=== PATIENT | male | born 1950 | race Caucasian/White ===

== ENCOUNTER 2021-03-25 13:45 | Outpatient (CLI) | payer MEDICARE, OTHER | END 2021-03-25 13:46 | disposition critical access hospital (66) | LOC: EMS 13:45 | DX: R55 Syncope and collapse (principal) | CPT/HCPCS: A0425; A0427 ==

== ENCOUNTER 2021-03-25 14:09 | Observation (INO) | payer MEDICARE, OTHER ==
[2021-03-25] MEDS ORDERED: SODIUM CHLORIDE 0.9% 1,000 ML IV STA ×2 (14:15→15:02)
[2021-03-25 14:25] LABS: BASOPHILS % (AUTO) 0.4 %; EOSINOPHILS # (AUTO) 0.1 10^3/uL (0.0-0.7); EOSINOPHILS % (AUTO) 1.9 %; HGB - HEMOGLOBIN 12.6 g/dL (14.0-18.0); LYMPHOCYTES % (AUTO) 18.8 %; MEAN CORPUSCULAR HEMOGLOBIN 31.1 pg (27.0-31.0); MEAN CORPUSCULAR HGB CONC 34.1 g/dL (32.0-36.0); MEAN CORPUSCULAR VOLUME 91.4 fL (80.0-94.0); MONOCYTES # (AUTO) 0.5 10^3/uL (0.0-1.0); NEUTROPHILS # (AUTO) 3.6 10^3/uL (1.5-6.6); NEUTROPHILS % (AUTO) 68.3 %; PLT - PLATELET COUNT 211 10^3/uL (130-450); RED BLOOD COUNT 4.05 10^6/uL (4.70-6.10); RED CELL DISTRIBUTION WIDTH 12.3 % (12.0-15.0); WHITE BLOOD COUNT 5.3 x10^3/uL (4.8-10.8)
--- NOTE | 2021-03-25 14:46 | CT Report ---
PROCEDURE: CERVICAL SPINE WO INDICATIONS: GLF TECHNIQUE: Noncontrast 3 mm thick sections acquired from the skull base to the T4 level. Sagittal and coronal r eformats were then constructed. For radiation dose reduction, the following was used: automated exp osure control, adjustment of mA and/or kV according to patient size. COMPARISON: None. FINDINGS: Image quality: Excellent. Bones: No fractures or dislocations. Visualized superior ribs are intact. Degenerative endplate ch anges and bilateral facet hypertrophic changes are seen throughout cervical spine. Dorsal disc osteop hyte complex formation at C3-4, C5-6 and C6-7 levels are seen causing mild central canal stenosis, no significant neural foraminal narrowing. Soft tissues: Prevertebral soft tissues are normal in thickness. No paravertebral hematomas. No ap ical pneumothoraces. IMPRESSION: 1. No acute cervical spine fracture or dislocation. 2. Degenerative disc disease throughout cervical spine as above. Reviewed by: Benji Benson MD on 03/25/2021 2:44 PM PDT Approved by: Benji Benson MD on 03/25/2021 2:44 PM PDT Station ID: [id number]
--- NOTE | 2021-03-25 14:49 | ED Physician Documentation ---
History of Present Illness - Stated complaint Stated Complaint: GLF - Chief complaint Chief Complaint: Neuro - Additonal information Additional information: 70-year-old male was brought to the emergency department for evaluation of a loss of consciousness. He had been working outside on his home when he was talking to his . She turned around and heard a thud and found that he had passed out. He struck his head on plywood. There was loss of consciousness for perhaps up to 2 to 3 minutes. Patient was confused on scene and on arrival to the emergency department does not know the date or current president. He believes that Rosa is president and that he is in [place]. He does not however have other focal deficits. After 20 to 30 minutes in the ER the patient is able to report to me that he remembers standing at his building site and feeling lightheaded and thought to himself "I am going to pass out." This gentleman did recently undergo a left nephrectomy for renal carcinoma. This was completed at [facility]. Review of Systems Constitutional: denies: Fever, Chills Eyes: reports: Reviewed and negative Ears: reports: Reviewed and negative Nose: reports: Reviewed and negative Throat: reports: Reviewed and negative Cardiac: reports: Reviewed and negative Respiratory: reports: Reviewed and negative GI: denies: Abdominal Pain, Nausea, Vomiting : denies: Dysuria, Frequency, Hesitancy Skin: denies: Rash, Lesions Musculoskeletal: denies: Neck pain, Back pain Neurologic: reports: Syncope, Altered mental status PD PAST MEDICAL HISTORY - Present Medications Home Medications: Ambulatory Orders Medication Instructions Recorded Confirmed Amlodipine Besylate [Norvasc] 10 mg PO DAILY 03/25/21 03/25/21 Aspirin EC [Ecotrin] 81 mg PO DAILY 03/25/21 03/25/21 Enalapril Maleate [Vasotec] 35 mg PO DAILY 03/25/21 03/25/21 atenoloL [Tenormin] 25 mg ORAL DAILY 03/25/21 03/25/21 - Allergies Allergies/Adverse Reactions: Allergies Allergy/AdvReac Type Severity Reaction Status Date / Time lisinopril Allergy Unknown Verified 03/25/21 14:14 Penicillins Allergy Unknown Verified 03/25/21 14:14 PD ED PE EXPANDED - General General: No acute distress - Neck Neck: Supple w/out meningeal sx. No: Adenopathy - Cardiac Cardiac: Regular Rate, Radial strong equal, Pedal strong equal, Cap refill < 2 sec. No: Murmur Present - Respiratory Respiratory: Clear to ausultation david. No: Distress, Labored - Abdomen Abdomen: Normal Bowel sounds, Surgical scars (Surgical scar left lower quadrant at the site of the recent nephrectomy). No: Tender to palpation - Derm Derm: Normal color, Warm and dry. No: Rash - Extremities Extremities: Normal. No: Deformity, Tenderness - Neuro Neuro: Confused, CNII-XII intact, PERRL, Normal gait, Normal finger nose, Normal speech. No: Dyscongugate gaze - GCS Eye Opening: Spontaneous Motor: Obeys Commands Verbal: Oriented Total: 15 Results - Vitals Vitals: Vital Signs - 24 hr 03/25/21 03/25/21 03/25/21 14:14 14:39 14:54 Temperature 36.8 C Heart Rate 51 L 50 L 49 L Heart Rate [ Sitting] Heart Rate [ Standing] Heart Rate [ Supine] Respiratory 18 20 14 Rate Blood Pressure 133/81 H 137/70 H 137/70 H Blood Pressure [Sitting] Blood Pressure [Standing] Blood Pressure [Supine] O2 Saturation 97 97 97 03/25/21 03/25/21 03/25/21 16:18 16:49 18:00 Temperature Heart Rate 52 L 52 L 62 Heart Rate [ Sitting] Heart Rate [ Standing] Heart Rate [ Supine] Respiratory 18 18 16 Rate Blood Pressure 151/70 H 149/71 H 143/80 H Blood Pressure [Sitting] Blood Pressure [Standing] Blood Pressure [Supine] O2 Saturation 99 97 95 03/25/21 03/25/21 18:06 18:21 Temperature 36.4 C L Heart Rate Heart Rate [ 53 L Sitting] Heart Rate [ 56 L Standing] Heart Rate [ 52 L Supine] Respiratory Rate Blood Pressure Blood Pressure 156/79 H [Sitting] Blood Pressure 163/80 H [Standing] Blood Pressure 154/81 H [Supine] O2 Saturation Oxygen O2 Source Room air - EKG (time done) 1455 Rate: Rate (enter#) (52) Rhythm: NSR [place]: Normal Intervals: Prolonged NM. No: Prolonged QT Ischemia: Normal ST segments Compare to prior EKG: Old EKG unavailable Computer interpretation: Agree with computer - Labs Labs: Laboratory Tests 03/25/21 03/25/21 03/25/21 14:19 14:19 14:19 WBC 5.3 RBC 4.05 L Hgb 12.6 L Hct 37.0 L MCV 91.4 MCH 31.1 H MCHC 34.1 RDW 12.3 Plt Count 211 MPV 9.0 Neut # (Auto) 3.6 Lymph # (Auto) 1.0 L [place] # (Auto) 0.5 Eos # (Auto) 0.1 Baso # (Auto) 0.0 Absolute Nucleated RBC 0.00 Nucleated RBC % 0.0 Sodium 141 Potassium 3.9 Chloride 106 Carbon Dioxide 29 Anion Gap 6.0 BUN 29 H Creatinine 1.6 H Estimated GFR (MDRD) 43 L Glucose 93 Calcium 8.7 Total Bilirubin 0.7 AST 18 ALT 21 Alkaline Phosphatase 63 Troponin I High Sens 4.9 Total Protein 6.9 Albumin 3.8 Globulin 3.1 Albumin/Globulin Ratio 1.2 Lipase 61 H Urine Color Urine Clarity Urine pH Ur Specific [place] Urine Protein Urine Glucose (UA) Urine Ketones Urine Occult Blood Urine Nitrite Urine Bilirubin Urine Urobilinogen Ur Leukocyte Esterase Ur Microscopic Review Urine Culture Comments 03/25/21 15:13 WBC RBC Hgb Hct MCV MCH MCHC RDW Plt Count MPV Neut # (Auto) Lymph # (Auto) [place] # (Auto) Eos # (Auto) Baso # (Auto) Absolute Nucleated RBC Nucleated RBC % Sodium Potassium Chloride Carbon Dioxide Anion Gap BUN Creatinine Estimated GFR (MDRD) Glucose Calcium Total Bilirubin AST ALT Alkaline Phosphatase Troponin I High Sens Total Protein Albumin Globulin Albumin/Globulin Ratio Lipase Urine Color YELLOW Urine Clarity CLEAR Urine pH 8.0 H Ur Specific [place] 1.015 Urine Protein NEGATIVE Urine Glucose (UA) NEGATIVE Urine Ketones NEGATIVE Urine Occult Blood NEGATIVE Urine Nitrite NEGATIVE Urine Bilirubin NEGATIVE Urine Urobilinogen 0.2 (NORMAL) Ur Leukocyte Esterase NEGATIVE Ur Microscopic Review NOT INDICATED Urine Culture Comments NOT INDICATED - Rads (name of study) CT head Radiology: Final report received (No CT evidence of acute intracranial pathology. No acute skull fracture. Asymmetrically prominent right lateral ventricle which could represent ex vacuo dilation of the ventricles secondary to adjacent right basal ganglia infarction with encephalomalacia. Mild to moderate periventricular and deep) CT cervical Radiology: Final report received (No acute cervical spine fracture or dislocation. Degenerative disc disease throughout the cervical spine) Pulmonary angio Radiology: Final report received (No evidence of pulmonary embolism, aortic dissection or aneurysm. Small left pleural effusion associated with compressive atelectasis. Mild cardiomegaly without vascular congestion. Partially imaged left nephrectomy surgical clips and small postoperative seroma.) PD MEDICAL DECISION MAKING - ED course Complexity details: reviewed results, re-evaluated patient, d/w patient ED course: 70-year-old male presents the emergency department for evaluation of syncope at his home building site. He did have a lapse in consciousness of about 2 to 3 minutes. His history includes a recent nephrectomy on March 07 at [facility]. His also reports that he has had previous strokes. On presentation the patient was somewhat confused to time and place but over the course of his ER stay he has become fully bright and aware. CT of the head did not show any acute findings though there is some ventriculomegaly and encephalo malacia consistent with previous infarct. I discussed these findings with the and she was aware of them. CT of the neck did not reveal any obvious findings. His EKG was nonischemic and screening labs did not reveal any worrisome findings. Given the sudden events and recent nephrectomy I did do a CT pulmonary angio to rule out a pulmonary embolus which was negative. He has noted to have chronic kidney disease and he did receive 2 L of crystalloid here in the ER. Screening orthostatics were unrevealing. Given the recent syncope with an unclear reason he will be admitted to observation for an echocardiogram in the a.m. Plan was discussed with Dr. Costello to who graciously agrees to admit the patient. Patient and his are aware and agreeable to plan Departure - Departure Disposition: ED Place in Observation Clinical Impression: History of nephrectomy, left Syncope Qualifiers: Syncope type: unspecified Qualified Code(s): R55 - Syncope and collapse Chronic renal insufficiency, stage III (moderate) Qualifiers: Chronic kidney disease stage 3 subtype: unspecified whether 3a or 3b Qualified Code(s): N18.30 - Chronic kidney disease, stage 3 unspecified
--- NOTE | 2021-03-25 14:49 | CT Report ---
PROCEDURE: HEAD WO INDICATIONS: AMS after fall TECHNIQUE: Noncontrast 4.5 mm thick angled axial sections acquired from the foramen magnum to the vertex. For r adiation dose reduction, the following was used: automated exposure control, adjustment of mA and/or kV according to patient size. COMPARISON: None FINDINGS: Image quality: Excellent. CSF spaces: Basal cisterns are patent. No extra-axial fluid collections. Right lateral ventricle is asymmetrically enlarged compared to left side. Brain: No intracranial bleeds or masses. Likely old infarction involving right basal ganglia is see n with encephalomalacia. There is cerebral volume loss for age, with resultant ventricular and sulcal prominence. There are periventricular and deep white matter chronic small vessel ischemic changes. There is intracranial internal carotid artery atherosclerosis. Skull and face: Calvarium and visualized facial bones appear intact, without suspicious lesions. Sinuses: Visualized sinuses and mastoids are clear. IMPRESSION: 1. No CT evidence of acute intracranial pathology. No acute skull fracture. 2. Asymmetrically prominent right lateral ventricle which could represent ex vacuo dilatation of vent ricles secondary to adjacent right basal ganglia infarction with encephalomalacia. Clinical correlati on and comparison with prior study can be helpful if available. 3. Mild to moderate periventricular and deep white matter chronic small vessel ischemic changes. Reviewed by: Benji Benson MD on 03/25/2021 2:48 PM PDT Approved by: Benji Benson MD on 03/25/2021 2:48 PM PDT Station ID: [id number]
[2021-03-25 14:50] LABS: ALBUMIN 3.8 g/dL (3.2-5.5); ALBUMIN/GLOBULIN RATIO 1.2 (1.0-2.2); BILIRUBIN,TOTAL 0.7 mg/dL (0.2-1.0); CALCIUM 8.7 mg/dL (8.5-10.3); CREATININE 1.6 mg/dL (0.6-1.2); POTASSIUM 3.9 mmol/L (3.5-5.0); TOTAL PROTEIN 6.9 g/dL (6.7-8.2)
[2021-03-25 15:28] LABS: BILIRUBIN,URINE NEGATIVE (NEGATIVE); GLUCOSE, URINE (UA) NEGATIVE (NEGATIVE); KETONES,URINE (UA) NEGATIVE (NEGATIVE); LEUKOCYTE ESTERASE, URINE NEGATIVE (NEGATIVE); NITRITE,URINE NEGATIVE (NEGATIVE); OCCULT BLOOD,URINE NEGATIVE (NEGATIVE); PROTEIN,URINE NEGATIVE (NEGATIVE); UROBILINOGEN,URINE 0.2 (NORMAL) E.U./dL (NORMAL)
[2021-03-25 15:29] LABS: CLARITY,URINE CLEAR (CLEAR)
[2021-03-25] MEDS ORDERED: IOVERSOL 320 100 ML VIAL IVP ONE ×2 (15:47→16:23)
--- NOTE | 2021-03-25 16:37 | CT Report ---
PROCEDURE: ANGIO CHEST W/WO INDICATIONS: syncope; recent nephrectomy; r/o PE CONTRAST: IV CONTRAST: Optiray 320 ml: 60 PO CONTRAST: *NO PO CONTRAST TECHNIQUE: After the administration of intravenous contrast, 2 mm thick sections acquired from the pulmonary api helga to the posterior costophrenic angles. 3-dimensional maximum intensity projection (MIP) coronal a nd sagittal reformats were then acquired through the thorax. For radiation dose reduction, the follow ing was used: automated exposure control, adjustment of mA and/or kV according to patient size. COMPARISON: None FINDINGS: Image quality: Excellent. Pulmonary arteries: Pulmonary arteries are normal in size, and demonstrate no intraluminal filling d efects to suggest central pulmonary embolism. Lungs and pleura: There is a small left pleural effusion with associated compressive atelectasis pres ent. Remainder the lungs and pleural spaces are clear. Mediastinum: Heart size is enlarged. without pericardial effusion. No mediastinal or hilar adenopath y. Thoracic aorta is normal in caliber and enhancement. Esophagus is normal in caliber, without hia dhruv hernia. Bones and chest wall: No suspicious bony lesions. Ribs and thoracic spine appear intact throughout. No axillary or supraclavicular adenopathy. The thyroid is normal in size and there are no incident al findings. Abdomen: Left nephrectomy with postoperative changes and small seroma in the renal bed. IMPRESSION: 1. No evidence of pulmonary embolism, aortic dissection or aneurysm. 2. Small left pleural effusion associated compressive atelectasis. 3. Mild cardiomegaly without vascular congestion. 4. Partially imaged left nephrectomy surgical clips and small postoperative seroma. Reviewed by: Chago Lama MD on 03/25/2021 3:35 PM AKDT Approved by: Chago Lama MD on 03/25/2021 3:35 PM AKDT Station ID: [id number]
[2021-03-25] MEDS ORDERED: SODIUM CHLORIDE FLUSH 0.9% 10 ML SYRINGE IVP PRN (18:36)
[2021-03-25] MEDS ORDERED: ONDANSETRON 4 MG/2 ML VIAL IVP PRN (18:36)
[2021-03-25] MEDS ORDERED: ACETAMINOPHEN 325 MG TABLET PO PRN (18:36)
[2021-03-25] MEDS: SODIUM CHLORIDE 0.9% 1,000 ML IV SCH (19:40)
[2021-03-25 19:57] LABS: B. PARAPERTUSSIS- RESP PCR PAN NOT DETECTED; B. PERTUSSIS- RESP PCR PANEL NOT DETECTED; C. PNEUMONIAE- RESP PCR PANEL NOT DETECTED; CORONAVIRUS 229E-RESP PCR NOT DETECTED; CORONAVIRUS HKU1-RESP PCR NOT DETECTED; CORONAVIRUS NL63-RESP PCR NOT DETECTED; CORONAVIRUS OC43-RESP PCR NOT DETECTED; HUMAN METAPNEUMOVIRUS NOT DETECTED; INFLUENZA A- RESP PCR PANEL NOT DETECTED; INFLUENZA B - RESP PCR PANEL NOT DETECTED; M. PNEUMONIAE- RESP PCR PANEL NOT DETECTED; PARAINFLUENZA VIRUS 1 NOT DETECTED; PARAINFLUENZA VIRUS 2 NOT DETECTED; PARAINFLUENZA VIRUS 3 NOT DETECTED; PARAINFLUENZA VIRUS 4 NOT DETECTED; RHINOVIRUS/ENTEROVIRUS NOT DETECTED; RSV- RESP PCR PANEL NOT DETECTED; SARS-CoV-2 -RESP PCR PANEL NOT DETECTED
--- NOTE | 2021-03-25 20:26 | HISTORY & PHYSICAL EXAMINATION ---
Chief Complaint - Chief Complaint Chief Complaint: Fainted, fell at home History of Present Illness - Admitted From Admitted From:: ED - History Obtained From History obtained from: ED provider and pt - History of Present Illness HPI Comment/Other: This is a 70-year-old white male with a history of prior stroke, hypertension and renal cell carcinoma who recently underwent left nephrectomy on 03/07/2021. The patient presents to the emergency room after having fainted. He was outside inspecting his new home being constructed, was about 45 min at the site site; his was also outside and she heard a thud and she turned around and saw him on the ground, he had hit his head on wood beams. He was unconscious abour 2 min, per the 's estimate. There is no ambulance run sheet available currently, to see his documented vital signs at the scene. In the ER his vital signs were stable, but he was confused, thought Rosa was president and that he was in [place] (where he used to live). He had no other focal neurologic findings. After about 30 minutes his sensorium cleared and he could remember tE EVENT: he had been standing, felt lightheaded and even thought to himself that he might pass out. This has never happened before. He has a home air-condit ioner and has not been over-heated lately or dehydrated during the recent excessive heat. Our ED provider was able to contact the Urologist, Dr. Thornton and they spoke. There had not been an Echo done before the recent nephrectomy. His labs showed an abnormal creatinine of 1.6, which is approximately at his baseline, per that Urologist. The patient is being placed in Observation status to evaluate for causes of his syncope. 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 Social History Notes: No smoking, and never smoked. No excessive alcohol intake. - Substance History Use: Uses substance without health or social issues: NONE Meds/Allgy - Home Medications Home Medications: Ambulatory Orders Medication Instructions Recorded Confirmed Amlodipine Besylate [Norvasc] 10 mg PO DAILY 03/25/21 03/25/21 Aspirin EC [Ecotrin] 81 mg PO DAILY 03/25/21 03/25/21 Enalapril Maleate [Vasotec] 35 mg PO DAILY 03/25/21 03/25/21 atenoloL [Tenormin] 25 mg ORAL DAILY 03/25/21 03/25/21 - Allergies Allergies/Adverse Reactions: Allergies Allergy/AdvReac Type Severity Reaction Status Date / Time lisinopril Allergy Unknown Verified 03/25/21 14:14 Penicillins Allergy Unknown Verified 03/25/21 14:14 Review of Systems - All Other Systems All Other Systems: reports: Reviewed and negative Exam - Vital Signs Vital Signs: Vital Signs x48h Temp Pulse Pulse Pulse Pulse Pulse Resp 03/25/21 19:32 36.9 C 54 L 16 03/25/21 18:21 53 L 56 L 52 L 03/25/21 18:06 36.4 C L 03/25/21 18:00 62 16 03/25/21 16:49 52 L 18 03/25/21 16:18 52 L 18 03/25/21 14:54 49 L 14 03/25/21 14:39 50 L 20 03/25/21 14:14 36.8 C 51 L 18 BP BP BP BP BP Pulse Ox 03/25/21 19:32 148/65 H 97 03/25/21 18:21 156/79 H 163/80 H 154/81 H 03/25/21 18:06 03/25/21 18:00 143/80 H 95 03/25/21 16:49 149/71 H 97 03/25/21 16:18 151/70 H 99 03/25/21 14:54 137/70 H 97 03/25/21 14:39 137/70 H 97 03/25/21 14:14 133/81 H 97 - Physical Exam General Appearance: positive: No acute distress, Alert Eyes Bilateral: positive: Normal inspection, EOMI ENT: positive: ENT inspection nml, No signs of dehydration Neck: positive: Nml inspection, No JVD, Other (No bruit) Respiratory: positive: No respiratory distress, Breath sounds nml Cardiovascular: positive: Regular rate & rhythm, No gallop, Other (1/6 systolic murmur at base) Abdomen: positive: Non-tender, Nml bowel sounds, No distention Skin: positive: No rash, Warm, Dry Extremities: positive: Non-tender, No pedal edema Neurologic/Psychiatric: positive: Oriented x3 (Non-focal) Conclusion/Plan - Problem List (1) Syncope Conclusion/Plan: Will place the patient on telemetry to watch for arrhythmias. We will obtain an Echo to evaluate for structural abnormalities and evaluate the mild murmur. Troponin was negative and EKG was negative, ischemia is ruled out. Orthostatic vital signs are to be checked. The most likely etiology is excessive blood pressure drop from the recent severe heat wave, causing possible dehydration on top of being on 3 blood pressure meds. We give fluids overnight and will adjust his blood pressure meds (as described below). Qualifiers: Syncope type: unspecified Qualified Code(s): R55 - Syncope and collapse (2) History of nephrectomy, left Conclusion/Plan: The patient has not seen a provider in person, since the nephrectomy surgery 18 days ago. There have been no blood tests since that surgery. He had a telehealth visit several daysa go, and apparently everything looks like it is healing well. He checks his blood pressure every day and states that his BP and HR have been stable, not lower recently. (3) Chronic renal insufficiency, stage III (moderate) Conclusion/Plan: This patient his only family had 2 visits here so there is no past record of old creatinine values. The urologist was able to tell our ED provider that 1.6 is about his baseline creatinine. He got 2 L fluid in the ED and getting gentle hydration overnight. Avoid nephrotoxins. He may be able to be on lower doses of all 3 BP meds. Qualifiers: Chronic kidney disease stage 3 subtype: unspecified whether 3a or 3b Qualified Code(s): N18.30 - Chronic kidney disease, stage 3 unspecified (4) HTN (hypertension) Conclusion/Plan: On 3 blood pressure medications which could be excessive and could be the cause of the syncope. We will empirically decrease his atenolol, amlodipine and CORIE-I dose by half. Orthostatic VS are to be checked and he may go home on the lower doses of his blood pressure meds. (5) History of CVA (cerebrovascular accident) Conclusion/Plan: The head CT showed evidence of the old stroke and some encephalomalacia because of it. The was aware of these changes when the ED provider reported those findings to them. Continue daily aspirin. - Lab Results Fish Bones: 03/25/21 14:19 03/25/21 14:19
[2021-03-26] MEDS: SODIUM CHLORIDE 0.9% 1,000 ML IV SCH (04:47)
[2021-03-26] MEDS: SODIUM CHLORIDE FLUSH 0.9% 10 ML SYRINGE IVP SCH ×2 (04:48→08:56)
[2021-03-26 05:37] LABS: CALCIUM 8.4 mg/dL (8.5-10.3); CREATININE 1.6 mg/dL (0.6-1.2)
[2021-03-26 05:40] LABS: BASOPHILS % (AUTO) 0.2 %; EOSINOPHILS # (AUTO) 0.1 10^3/uL (0.0-0.7); EOSINOPHILS % (AUTO) 0.9 %; HGB - HEMOGLOBIN 11.9 g/dL (14.0-18.0); LYMPHOCYTES # (AUTO) 1.2 10^3/uL (1.5-3.5); LYMPHOCYTES % (AUTO) 21.8 %; MEAN CORPUSCULAR HEMOGLOBIN 31.3 pg (27.0-31.0); MEAN CORPUSCULAR VOLUME 92.1 fL (80.0-94.0); MEAN PLATELET VOLUME 9.9 fL (7.4-11.4); MONOCYTES # (AUTO) 0.5 10^3/uL (0.0-1.0); MONOCYTES % (AUTO) 9.6 %; NEUTROPHILS # (AUTO) 3.6 10^3/uL (1.5-6.6); NEUTROPHILS % (AUTO) 67.1 %; PLT - PLATELET COUNT 198 10^3/uL (130-450); RED CELL DISTRIBUTION WIDTH 12.4 % (12.0-15.0); WHITE BLOOD COUNT 5.4 x10^3/uL (4.8-10.8)
--- NOTE | 2021-03-26 08:56 | PHARMACY PROGRESS NOTE ---
- Best Possible Medication History Admit Date and Time: 03/25/21 1836 Processed by: Nursing Medication History completed: Yes As the person ultimately responsible for medication therapy, providers are able to order a medication from an existing home medication list in [facility] via the "Reconcile Routine" prior to Confirmation of that medication by program support specialist. Such practice is discouraged except when the physician, in their clinical judgment, deems that a medical need exists for a medication without regard to previous use.
[2021-03-26] MEDS ORDERED: ENALAPRIL 5 MG TABLET PO SCH (09:00)
[2021-03-26] MEDS ORDERED: atenoloL 25 MG TABLET PO SCH (09:00)
[2021-03-26] MEDS ORDERED: ASPIRIN EC 81 MG TABLET PO SCH (09:00)
[2021-03-26] MEDS ORDERED: amLODIPine 5 MG TABLET PO SCH (09:00)
--- NOTE | 2021-03-26 13:51 | DISCHARGE SUMMARY ---
Discharge Summary Admit Date: 03/25/21 Discharge Date: 03/26/21 Discharging Provider: Richar Costello Primary Care Provider: Sheng Alvarenga Condition at Discharge: Stable Discharge Disposition: 01 Home, Self Care - DIAGNOSES Admission Diagnoses: Syncope History of left nephrectomy Chronic renal insufficiency stage III Hypertension History of CVA Discharge Diagnoses with Status of Each Condition: Syncope: Resolved. Work-up unremarkable History of left nephrectomy: Patient to follow-up with his urologist Chronic renal insufficiency stage III Hypertension: Stable. Resume home medications History of CVA: Chronic. - HPI History of Present Illness: This is a 70-year-old white male with a history of prior stroke, hypertension and renal cell carcinoma who recently underwent left nephrectomy on 03/07/2021. The patient presents to the emergency room after having fainted. He was outside inspecting his new home being constructed, was about 45 min at the site site; his was also outside and she heard a thud and she turned around and saw him on the ground, he had hit his head on wood beams. He was unconscious abour 2 min, per the 's estimate. There is no ambulance run sheet available currently, to see his documented vital signs at the scene. In the ER his vital signs were stable, but he was confused, thought [facility] was president and that he was in [place] (where he used to live). He had no other focal neurologic findings. After about 30 minutes his sensorium cleared and he could remember tE EVENT: he had been standing, felt lightheaded and even thought to himself that he might pass out. This has never happened before. He has a home air- conditioner and has not been over-heated lately or dehydrated during the recent excessive heat. Our ED provider was able to contact the Urologist, Dr. Thornton and they spoke. There had not been an Echo done before the recent nephrectomy. His labs showed an abnormal creatinine of 1.6, which is approximately at his baseline, per that Urologist. The patient is being placed in Observation status to evaluate for causes of his syncope. - HOSPITAL COURSE Hospital Course: Patient was admitted and monitored on telemetry overnight. His overnight hospital stay was unremarkable. This morning while he was undergoing a 2D echocardiogram he had Beat run of V. tach. He was asymptomatic during it. Electrolytes were checked and noted to be normal. His heart rate has been in the 50s throughout his stay. This is his regular heart rate. He was able to ambulate to the bathroom with no difficulties. Orthostatic vitals were unremarkable. His 2D echocardiogram showed an ejection fraction of 65 to 70%. He had mild left ventricular enlargement. Impaired relaxation consistent with grade 1 diastolic dysfunction. No regional wall motion abnormalities. Moderate to severe right atrial enlargement. With RVSP of 40mmHg. There was no evidence of aortic stenosis or regurgitation. He was discharged in stable condition. He may follow-up with his primary care physician as needed. He may benefit from a CPAP for sleep apnea. He was advised to discuss with his primary care physician for a referral for a sleep study. Patient's was at bedside. They expressed understanding and are agreeable to the plan. - ALLERGIES Allergies/Adverse Reactions: Allergies Allergy/AdvReac Type Severity Reaction Status Date / Time lisinopril Allergy Unknown Verified 03/25/21 14:14 Penicillins Allergy Unknown Verified 03/25/21 14:14 - MEDICATIONS Home Medications: Ambulatory Orders Medication Instructions Recorded Confirmed Amlodipine Besylate [Norvasc] 10 mg PO DAILY 03/25/21 03/25/21 Aspirin EC [Ecotrin] 81 mg PO DAILY 03/25/21 03/25/21 Enalapril Maleate [Vasotec] 35 mg PO DAILY 03/25/21 03/25/21 atenoloL [Tenormin] 25 mg ORAL DAILY 03/25/21 03/25/21 ALPRAZolam [Alprazolam] 0.5 mg PO DAILY PRN 03/26/21 - PHYSICAL EXAM AT DISCHARGE General Appearance: positive: No acute distress, Alert Eyes Bilateral: positive: PERRL, EOMI ENT: positive: No signs of dehydration Neck: positive: No JVD, Trachea midline Respiratory: positive: Chest non-tender, No respiratory distress, Breath sounds nml. negative: Wheezes, Rales, Rhonchi Cardiovascular: positive: No murmur, No gallop, Bradycardia Abdomen: positive: Non-tender, No organomegaly, Nml bowel sounds, No distention. negative: Guarding, Rebound Skin: positive: Color nml, No rash, Warm, Dry Extremities: positive: Non-tender, Full ROM, Nml appearance, No pedal edema Neurologic/Psychiatric: positive: Oriented x3, Mood/affect nml - LABS Result Diagrams: 03/26/21 04:40 03/26/21 04:40 - TIME SPENT Time Spent in Discharge (Minutes): 25
--- NOTE | 2021-03-26 14:01 | Discharge Plan ---
Discharge Plan Problem Reviewed?: Yes Disposition: 01 Home, Self Care Condition: Stable Diet: Cardiac Activity Restrictions: Activity as Tolerated Health Concerns: You were admitted yesterday 03/25/21 after a syncopal episode at home. Work-up included a CT of the brain, CT of the chest which were unremarkable. He also had orthostatic vitals done which were normal. You were monitored on telemetry overnight and also received IV hydration. You also had a 2D echocardiogram done which Showed an ejection fraction of 65 to 70%. Consequently you are being discharged home in stable condition. Your heart rate was mostly in the 50s. This is chronic for you. We will continue your medications at home dose. You may follow-up with your primary care physician as needed. The above plan was explained to you, you expressed understanding and are in agreement Plan of Treatment: You were admitted yesterday 03/25/21 after a syncopal episode at home. Work-up included a CT of the brain, CT of the chest which were unremarkable. He also had orthostatic vitals done which were normal. You were monitored on telemetry overnight and also received IV hydration. You also had a 2D echocardiogram done which Showed an ejection fraction of 65 to 70%. Consequently you are being discharged home in stable condition. Your heart rate was mostly in the 50s. This is chronic for you. We will continue your medications at home dose. You may follow-up with your primary care physician as needed. The above plan was explained to you, you expressed understanding and are in agreement Care Goals: You were admitted yesterday 03/25/21 after a syncopal episode at home. Work-up included a CT of the brain, CT of the chest which were unremarkable. He also had orthostatic vitals done which were normal. You were monitored on telemetry overnight and also received IV hydration. You also had a 2D echocardiogram done which Showed an ejection fraction of 65 to 70%. Consequently you are being discharged home in stable condition. Your heart rate was mostly in the 50s. This is chronic for you. We will continue your medications at home dose. You may follow-up with your primary care physician as needed. The above plan was explained to you, you expressed understanding and are in agreement Assessment: You were admitted yesterday 03/25/21 after a syncopal episode at home. Work-up included a CT of the brain, CT of the chest which were unremarkable. He also had orthostatic vitals done which were normal. You were monitored on telemetry overnight and also received IV hydration. You also had a 2D echocardiogram done which Showed an ejection fraction of 65 to 70%. Consequently you are being discharged home in stable condition. Your heart rate was mostly in the 50s. This is chronic for you. We will continue your medications at home dose. You may follow-up with your primary care physician as needed. The above plan was explained to you, you expressed understanding and are in agreement No Smoking: If you smoke, Please STOP! Call for help. Follow-up with: DAMARIS BANGURA DO [Primary Care Provider] -
[2021-03-26 15:36] VITALS: BP 130/78
== END 2021-03-26 15:00 | disposition home or self-care (01) ==
LOC: EDUNIT# → ED 14:09 → MS3 18:36
PROVIDERS: ADMIT Internal Medicine; ATTEND Internal Medicine
DX: R55 Syncope and collapse (principal); I12.9 Hypertensive chronic kidney disease with stage 1 through stage 4 chronic kidney disease, or unspecified chronic kidney disease; N18.30 Chronic kidney disease, stage 3 unspecified; I10 Essential (primary) hypertension; Z86.73 Personal history of transient ischemic attack (TIA), and cerebral infarction without residual deficits; S06.9X1A Unspecified intracranial injury with loss of consciousness of 30 minutes or less, initial encounter; W18.30XA Fall on same level, unspecified, initial encounter; Y92.61 Building [any] under construction as the place of occurrence of the external cause; R41.0 Disorientation, unspecified; Z90.5 Acquired absence of kidney; Z85.528 Personal history of other malignant neoplasm of kidney; Z20.822 Contact with and (suspected) exposure to COVID-19
CPT/HCPCS: 36415; 70450; 71275; 72125; 80048; 80053; 81003; 83690; 83735; 84100; 84484; 85025; 87631; 93005; 93306; 96360; 96361; 99284; 99285; A9270; G0378; Q9967; 0202U; 81001; 87086

== ENCOUNTER 2022-03-19 12:17 | Outpatient (CLI) | payer MEDICARE, OTHER ==
[2022-03-19 12:47] LABS: CALCIUM 9.5 mg/dL (8.5-10.3); CREATININE 1.7 mg/dL (0.6-1.2); POTASSIUM 3.9 mmol/L (3.5-5.0)
[2022-03-19 13:06] LABS: THYROID STIMULATING HORMONE 0.83 uIU/mL (0.34-5.60)
== END 2022-03-19 12:18 | disposition home or self-care (01) ==
LOC: LAB 12:17
PROVIDERS: ATTEND Internal Medicine Medical Oncology
DX: N18.31 Chronic kidney disease, stage 3a (principal); R29.898 Other symptoms and signs involving the musculoskeletal system; R53.83 Other fatigue
CPT/HCPCS: 36415; 80048; 82550; 82607; 84443

== ENCOUNTER 2024-06-12 12:57 | Emergency (ER) | payer MEDICARE, OTHER ==
--- NOTE | 2024-06-12 13:17 | ED Physician Documentation ---
History of Present Illness - Stated complaint Stated Complaint: GLF,FOREHEAD LAC,NECK PX - Chief complaint Chief Complaint: Trauma Hd/Nk - History obtained from History obtained from: Patient - Additonal information Additional information: This is a very nice 73-year-old gentleman with a history of renal cell carcinoma status post left nephrectomy, not currently on any therapy, as well as a gait problem for the last 2 years or so which she is followed by neurology for, presents after a fall today. The patient states he was on a walk while his car was being serviced, and had walked about 2 to 3 miles when his legs felt weak as they sometimes do and he felt like he could not control himself, started to run a little bit and then first onto the pavement. He may have lost consciousness for a brief moment but was able to get up with assistance, and has no retrograde amnesia. He denies any other injuries in the fall, no injuries to his extremities, neck, back. He states no confusion or alteration in mental status since the event. He reports some issues with following the past, he states the neurologist is not sure what is causing his intermittent gait dysfunction, they have done numerous tests and recently started him on some medication for possible Parkinson's about a week ago but he has not noticed any effect with this yet. He is not on any anticoagulation. He states he is not sure he is up-to-date on tetanus but does not wish to have a vaccine today. Review of Systems Constitutional: reports: Reviewed and negative Eyes: reports: Reviewed and negative Ears: reports: Reviewed and negative Nose: reports: Reviewed and negative Throat: reports: Reviewed and negative Cardiac: reports: Reviewed and negative Respiratory: reports: Reviewed and negative GI: reports: Reviewed and negative : reports: Reviewed and negative Skin: reports: Laceration (s) Musculoskeletal: reports: Reviewed and negative Neurologic: reports: Focal weakness, Head injury, LOC Psychiatric: reports: Reviewed and negative Endocrine: reports: Reviewed and negative PD PAST MEDICAL HISTORY - Past Medical History Past Medical History: Yes Cardiovascular: Hypertension Respiratory: Sleep apnea, CPAP use Neuro: CVA Endocrine/Autoimmune: None GI: None : Other HEENT: None Psych: None Musculoskeletal: None Derm: None - Past Surgical History Past Surgical History: Yes General: 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: Other (L nephrectomy 18 days ago, anterior apprioach, had 1 tele-health visit since surg.) HEENT: Other - Present Medications Home Medications: Ambulatory Orders Medication Instructions Recorded Confirmed Aspirin EC [Ecotrin] 81 mg PO DAILY 03/25/21 06/12/24 Carbidopa/Levodopa 0.5 tab PO TID 06/12/24 06/12/24 [Carbidopa-Levodopa 25-100 Tab] Enalapril Maleate [Vasotec] 20 mg PO BID 06/12/24 06/12/24 hydroCHLOROthiazide [Hydrodiuril] 25 mg PO DAILY 06/12/24 06/12/24 - Allergies Allergies/Adverse Reactions: Allergies Allergy/AdvReac Type Severity Reaction Status Date / Time lisinopril Allergy Unknown Verified 06/12/24 13:02 Penicillins Allergy Unknown Verified 06/12/24 13:02 - Social History Does the pt smoke?: No Smoking Status: Never smoker Does the pt drink ETOH?: No Does the pt have substance abuse?: Yes Substance Use and Type: Marijuana - Immunizations Immunizations are current?: Yes - POLST Patient has POLST: No PD ED PE NORMAL - Vitals Vital signs reviewed: Yes - General General: Alert and oriented X 3, No acute distress, Well developed/nourished - HEENT HEENT: PERRL, EOMI, Pharynx benign, Other (Light abrasions on the bridge of the nose, chin forehead. Dried blood left nare, septum midline. No oral lacerations. 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, No motor deficit, No sensory deficit, Normal speech Eye Opening: Spontaneous Motor: Obeys Commands Verbal: Oriented GCS Score: 15 - Psych Psych: Normal mood, Normal affect Results - Vitals Vitals: Vital Signs - 24 hr 06/12/24 06/12/24 06/12/24 13:02 13:32 14:49 Temperature 36.6 C Heart Rate 80 80 53 L Respiratory 18 20 17 Rate Blood Pressure 173/90 H 174/81 H 172/85 H O2 Saturation 96 95 96 Oxygen O2 Source Room air - Rads (name of study) No standard instances Relevant Findings:: Final report received Procedures - Laceration (location) Face right Length in cm: 2 (entire lac about 4 cm, repaired portion 2cm) Wound type: Linear Neurovascular status: Vascular intact Anesthesia: Lidocaine 1% Wound preparation: Irrigated copiously NS Skin layer closure: Sutures - enter # (4), Other (Vicryl sutures) Other: Patient tolerated well, No complications, Other (pt declined tdap) PD Medical Decision Making - ED course Complexity details: reviewed results, re-evaluated patient, considered differential, d/w patient ED course: 73-year-old male presented with a ground-level fall as extremity HPI. The patient has had some difficulty with his gait recently for which he is followed by neurology and had a fall today after walking several miles and developing fatigue in his legs. I have low suspicion for any other cause of his fall today and it seems to have been a mechanical fall. He sustained a small laceration over the right eyebrow and some contusion and abrasion to his face. These wounds were cleaned thoroughly with saline and Hibiclens and I recommended that we repair the right eyebrow incision. A portion of it was deeper and for #5.0 nylon dissolvable sutures were placed into the wound with excellent wound edge approximation. Patient advised of home wound care instructions and advised to keep areas clean with gentle soap and water, utilize topical antibacterial ointment and follow-up if any signs of infection. Head CT was obtained which shows no acute intracranial issues and patient will continue follow-up with neurology for his gait dysfunction. I recommended that he utilize his assistive devices that whenever possible and he was encouraged to stay active but recommended he likely not walk such long distances in one go in the future. Return precautions viewed if he developed any new or worsening symptoms. Departure - Departure Disposition: 01 Home, Self Care Clinical Impression: Facial abrasion, Laceration of right eyebrow, Fall from ground level Condition: Good Instructions: ED Laceration All Comments: I placed 4 sutures in your right eyebrow. These are dissolvable and do not need to be removed. About half the wound was not sutured as it is quite superficial. You have abrasions on your nose and chin and they should be kept clean with gentle soap and water and you can apply an [id number] antibacterial ointment to them. Your head CT today does not show any new findings. Please continue to follow-up with your neurologist regarding your gait and recurrent falls. Utilize assistive devices whenever possible. Return to the ER if you develop any signs of infection on your wounds or have new concerns. Forms: PCP List Discharge Date/Time: 06/12/24 15:04
--- NOTE | 2024-06-12 14:30 | CT Report ---
PROCEDURE: Head WO INDICATIONS: fall TECHNIQUE: Noncontrast 4.5 mm thick angled axial sections acquired from the foramen magnum to the vertex. For r adiation dose reduction, the following was used: automated exposure control, adjustment of mA and/or kV according to patient size. COMPARISON: 03/25/2021. FINDINGS: Image quality: Excellent. CSF spaces: Basal cisterns are patent. No extra-axial fluid collections. Extra-axial dilatation of the frontal horn of the right lateral ventricle secondary to subjacent chronic infarct.. Brain: No midline shift. No intracranial masses or hemorrhage. Jay-white matter interface is norm al. Intracranial carotid calcifications. Age-related volume loss and small vessel ischemic change. O ld bilateral basal ganglia infarcts, right larger than left. Skull and face: Calvarium and visualized facial bones are intact, without suspicious lesions. Sinuses: Visualized sinuses and mastoids are clear. IMPRESSION: No acute intracranial pathology. Age-related volume loss, small vessel ischemic change, bilateral old infarcts. Reviewed by: Kasi Coleman MD on 06/12/2024 2:28 PM PDT Approved by: Kasi Coleman MD on 06/12/2024 2:28 PM PDT Station ID: [id number]
[2024-06-12 14:52] VITALS: BP 172/85; O2SAT 96
== END 2024-06-12 15:04 | disposition home or self-care (01) ==
LOC: ED 12:57
DX: S01.111A Laceration without foreign body of right eyelid and periocular area, initial encounter (principal); W18.39XA Other fall on same level, initial encounter; Y93.01 Activity, walking, marching and hiking; Y92.480 Sidewalk as the place of occurrence of the external cause; R29.898 Other symptoms and signs involving the musculoskeletal system
CPT/HCPCS: 12011; 99283; 99284